=== PATIENT | male | born 1970 | race Caucasian/White ===

== ENCOUNTER 2017-09-30 16:48 | Emergency (ER) | payer OTHER ==
[~2017-09-30] VITALS: Ht 170.2 cm; Wt 63.5 kg
[2017-09-30] MEDS ORDERED: HYDROMORPHONE 1 MG/1 ML DISP.SYRIN IV ONE (17:30)
[2017-09-30] MEDS ORDERED: ONDANSETRON 4 MG/2 ML VIAL IV ONE (17:30)
[2017-09-30] MEDS ORDERED: IV NORMAL SALINE 1000 ML BAG IV ONE ×2 (17:30→18:30)
[2017-09-30 17:36] LABS: BASOPHILS % (AUTO) 0.4 % (0.0-2.0); EOSINOPHILS # (AUTO) 0.2 K/uL (0.0-0.7); EOSINOPHILS % (AUTO) 4.3 % (0.0-7.0); HEMATOCRIT 40.8 % (40-50); HEMOGLOBIN 13.4 G/DL (14.0-18.0); LYMPHOCYTES # (AUTO) 0.5 K/UL (0.8-4.8); LYMPHOCYTES % (AUTO) 9.6 % (20.5-51.5); MEAN CORPUSCULAR HEMOGLOBIN 28.7 UUG (27.0-31.0); MEAN CORPUSCULAR HGB CONC 33 g/dL (32.0-37.0); MEAN CORPUSCULAR VOLUME 87.5 FL (82.0-92.0); MONOCYTES # (AUTO) 0.4 K/UL (0.1-1.30); MONOCYTES % (AUTO) 8.3 % (0.0-11.0); NEUTROPHILS # (AUTO) 3.8 K/UL (1.8-8.9); NEUTROPHILS % (AUTO) 77.4 % (38.5-71.5); PLATELET COUNT (AUTO) 167 K/UL (150-450); RED BLOOD CELL COUNT(AUTO) 4.67 MIL/UL (4.7-6.1); WHITE BLOOD COUNT (AUTO) 4.9 K/UL (4.0-11.2)
[2017-09-30] MEDS ORDERED: HYDROMORPHONE 2 MG/1 ML DISP.SYRIN ONE (17:41)
[2017-09-30] MEDS ORDERED: ONDANSETRON 4 MG/2 ML VIAL ONE (17:42)
--- NOTE | 2017-09-30 17:42 | NUR ---
Pt to CT via [facility] chandler noted at this time.
[2017-09-30 17:49] LABS: BILIRUBIN,DIRECT 0.1 mg/dL (0.0-0.2); BILIRUBIN,TOTAL 0.3 mg/dL (0.2-1.0); TOTAL PROTEIN, SERUM 8.2 g/dL (6.4-8.2)
--- NOTE | 2017-09-30 18:01 | NUR ---
PT BACK IN ER FROM CT
--- NOTE | 2017-09-30 19:24 | NUR ---
Patient discharged to home in stable conditon. Written and verbal after care instructions given. Patient verbalizes understanding of instructions.
== END 2017-09-30 19:25 | disposition home or self-care (01) ==
LOC: ER 16:48
DX: A08.4 Viral intestinal infection, unspecified (principal); Z59.0 Homelessness
CPT/HCPCS: 70030-TC; 71010; 83605; 83690; 85025; 85730; 87040; 93005; A4663; J1170; J2405; J7030

== ENCOUNTER 2017-10-01 20:42 | Emergency (ER) | payer OTHER ==
[~2017-10-01] VITALS: Ht 170.2 cm; Wt 63.5 kg
--- NOTE | 2017-10-01 21:25 | NUR ---
No answer in wr
[2017-10-01] MEDS ORDERED: IV NORMAL SALINE 1000 ML BAG IV ONE (21:45)
[2017-10-01 22:05] LABS: BASOPHILS % (AUTO) 0.2 % (0.0-2.0); EOSINOPHILS # (AUTO) 0.2 K/uL (0.0-0.7); EOSINOPHILS % (AUTO) 6.1 % (0.0-7.0); HEMATOCRIT 38.5 % (40-50); HEMOGLOBIN 12.6 G/DL (14.0-18.0); LYMPHOCYTES # (AUTO) 0.5 K/UL (0.8-4.8); LYMPHOCYTES % (AUTO) 13.7 % (20.5-51.5); MEAN CORPUSCULAR HEMOGLOBIN 28.6 UUG (27.0-31.0); MEAN CORPUSCULAR HGB CONC 33 g/dL (32.0-37.0); MEAN CORPUSCULAR VOLUME 87.7 FL (82.0-92.0); MONOCYTES # (AUTO) 0.3 K/UL (0.1-1.30); MONOCYTES % (AUTO) 6.5 % (0.0-11.0); NEUTROPHILS % (AUTO) 73.5 % (38.5-71.5); PLATELET COUNT (AUTO) 161 K/UL (150-450)
[2017-10-01 22:14] LABS: POTASSIUM 3.5 mmol/L (3.5-5.1)
[2017-10-01 22:24] LABS: BILIRUBIN,DIRECT 0.1 mg/dL (0.0-0.2); BILIRUBIN,TOTAL 0.2 mg/dL (0.2-1.0); TOTAL PROTEIN, SERUM 7.6 g/dL (6.4-8.2)
--- NOTE | 2017-10-01 23:30 | NUR ---
Removed IV intact, site okay, bandaged. Gave pt d/c instructions, verbalized understanding.
[2017-10-01 23:32] LABS: *BILIRUBIN,URIN NEGATIVE (NEGATIVE); *BLOOD, URINE 1+ (NEGATIVE); *CLARITY,URINE SLIGHTLY CLOUDY (CLEAR); *COLOR,URINE YELLOW (YELLOW); *KETONES,URINE NEGATIVE (NEGATIVE); *PROTEIN,URINE TRACE (NEGATIVE); *UROBILINOGEN,URINE 0.2 E.U./dl (NORMAL); LEUKOCYTE ESTERASE ,URINE NEGATIVE (NEGATIVE); NITRITE, URINE POSITIVE (NEGATIVE); PH,URINE 5.5 (5.0-8.0); UGLUCOSE NEGATIVE (NEGATIVE)
[2017-10-02 01:03] LABS: BACTERIA,URINE FEW /HPF (NONE SEEN); RBC,URINE 0-3 /HPF (0-3); SQUAMOUS EPITHELIAL CELL,UR FEW /HPF (NONE SEEN); WBC,URINE 0-3 /HPF (0-3)
== END 2017-10-01 23:32 | disposition home or self-care (01) ==
LOC: ER 20:44
DX: A08.4 Viral intestinal infection, unspecified (principal); Z59.0 Homelessness
CPT/HCPCS: 36415; 80048; 80076; 81001; 83690; 85025; 96360; 99284; A4663; J7030